=== PATIENT | female | born 1930 | race Caucasian/White ===

== ENCOUNTER → 2017-02-28 | Outpatient (CLI) | payer MEDICARE, OTHER ==
[~2017-02-28] MED LIST: ACET325T21 PO; ALBU2.5V NPPB; AMIT10TA PO; ASPI-515 PO; ATOR20TA9 PO; CEPH-376 PO; CIPR500T87 PO; DOCU-131 PO; DOXY100T PO; ENOX40SY4 SQ; ERGO2000 PO; GUAI600T31 PO; HYDR25TA6 PO; LEVO200T5 PO; LIOT5TAB3 PO; LISI-170 PO; OMEP-110 PO; ONDA4TAB7 PO; PARO20TA4 PO; PAXIL; POLY17PO5 PO; POTASSIUM; SENN1TAB7 PO; UNK BP MED
== END | disposition home or self-care (01) ==
LOC: RAD 12:43
PROVIDERS: ATTEND Nurse Practitioner
DX: I50.9 Heart failure, unspecified (principal); J81.1 Chronic pulmonary edema; J90 Pleural effusion, not elsewhere classified; I51.7 Cardiomegaly; R60.0 Localized edema
CPT/HCPCS: 71020

== ENCOUNTER → 2018-01-25 | Outpatient (CLI) | payer MEDICARE, OTHER ==
[~2018-01-25] MED LIST changes: +ATEN50TA41 PO; +CYAN10005 PO; +DILT360T7 PO; +FAMO20TA37 PO; +FERR-51 PO; +FURO40TA6 PO; +LOSA100T6 PO; +PANT40TA5 PO; +PARO20TA98 PO; +POTA20TA14 PO; +POTA8TAB PO
[2018-01-25 14:19] LABS: MEAN CORPUSCULAR HEMOGLOBIN 30.4 pg (27.0-34.8); MEAN CORPUSCULAR VOLUME 92.2 fL (80-100); MEAN PLATELET VOLUME 7.5 fL (7.4-10.4); PLATELET COUNT 239 x10^3/uL (130-400); RED BLOOD COUNT 4.97 x10^6/uL (3.82-5.3); RED CELL DISTRIBUTION WIDTH 17.5 % (9.6-15.2)
[2018-01-25 14:24] LABS: BASOPHILS # (AUTO) 0.04 x10^3/uL (0-0.1); BASOPHILS % (AUTO) 0 % (0-1); EOSINOPHILS # (AUTO) 0.08 x10^3/uL (0-0.4); EOSINOPHILS % (AUTO) 1 % (1-7); LYMPHOCYTES # (AUTO) 2.63 x10^3/uL (1-3.4); LYMPHOCYTES % (AUTO) 25 % (22-44); MONOCYTES # (AUTO) 1.01 x10^3/uL (0.2-0.8); MONOCYTES % (AUTO) 10 % (2-9); NEUTROPHILS # (AUTO) 6.68 x10^3/uL (1.8-6.8); NEUTROPHILS % (AUTO) 64 % (42-75)
[2018-01-25 14:29] LABS: ALANINE AMINOTRANSFERASE 16 U/L (12-78); ALBUMIN 3.1 g/dL (3.4-5.0); ANION GAP 5 mmol/L (5-15); CALCIUM 8.8 mg/dL (8.5-10.1); CHLORIDE 104 mmol/L (98-107); CREATININE 0.86 mg/dL (0.55-1.02)
[2018-01-25 14:32] LABS: ALKALINE PHOSPHATASE 90 U/L (45-117); BILIRUBIN,TOTAL 1.1 mg/dL (0.2-1.0); TOTAL PROTEIN 6.6 g/dL (6.4-8.2)
[2018-01-25 14:34] LABS: MD NO
== END | disposition home or self-care (01) ==
LOC: STAR 13:09
DX: Z01.818 Encounter for other preprocedural examination (principal); D64.9 Anemia, unspecified; Z88.5 Allergy status to narcotic agent; Z88.0 Allergy status to penicillin
CPT/HCPCS: 36415; 80053; 85025; 93005

== ENCOUNTER 2018-01-30 10:00 | Day surgery (SDC) | payer MEDICARE, OTHER ==
[~2018-01-30] VITALS: Ht 162.6 cm; Wt 80.5 kg
[2018-01-30] MEDS ORDERED: LACTATED RINGERS 1,000 ML IV SCH (10:36)
[2018-01-30 10:37] VITALS: BP 130/92
[2018-01-30] MEDS ORDERED: LIDOCAINE-MPF 1%, 5ML ONE (10:53)
[2018-01-30] MEDS ORDERED: LIDOCAINE-MPF 1%, 2ML INFIL ONE (11:00)
[2018-01-30] MEDS ORDERED: hydrALAzine 20 MG/ML, 1ML IV PRN (11:30)
[2018-01-30] MEDS ORDERED: ONDANSETRON 2MG/ML, 2ML IV PRN (11:30)
[2018-01-30] MEDS ORDERED: FENTANYL PF 100 MCG/2ML IV PRN (11:30)
[2018-01-30] MEDS ORDERED: LABETALOL 5MG/ML, 20ML IV PRN (11:30)
[2018-01-30] MEDS ORDERED: METOPROLOL SUCCINATE 50 MG TAB.ER.24H PO ONE (12:00)
[2018-01-30] MEDS ORDERED: PROPOFOL 10 MG/ML, 20ML ONE (13:34)
== END 2018-01-30 15:15 | disposition home or self-care (01) ==
LOC: OUT 10:00
DX: K31.819 Angiodysplasia of stomach and duodenum without bleeding (principal); J44.9 Chronic obstructive pulmonary disease, unspecified; I48.91 Unspecified atrial fibrillation; I50.9 Heart failure, unspecified; Z87.891 Personal history of nicotine dependence; Z98.890 Other specified postprocedural states; Z85.3 Personal history of malignant neoplasm of breast; Z79.899 Other long term (current) drug therapy
CPT/HCPCS: 43270; J2704; J3490; J7120